=== PATIENT | male | born 1980 | race Caucasian/White ===

== ENCOUNTER 2021-02-27 09:38 | Emergency (ER) | payer BC, SELFPAY ==
[2021-02-27 09:40] VITALS: BP 133/83; PULSE 70; RESP 18; TEMP 36.7; O2SAT 97; BMI 25.7
[2021-02-27 09:50] VITALS: BP 133/83
--- NOTE | 2021-02-27 09:53 | HMH.EDGENADL ---
ED Disposition Clinical Impression: Low back pain Qualifiers: Chronicity: acute Back pain laterality: midline Sciatica presence: without sciatica Qualified Code(s): M54.5 - Low back pain Disposition: Home, Self-Care Condition on Discharge: Good Instructions: DI for Low Back Pain Additional Instructions: Off work until Tuesday. Avoid strenuous activity until Tuesday. Prednisone as prescribed. Loranger as needed for pain. You are being provided with a list of physicians available for follow-up of your condition. Please call a physician on this list to arrange a follow-up appointment as soon as possible. Additional instructions for BACK PAIN: See your physician as soon as possible for further evaluation. Return immediately if back pain becomes intolerable, or if fever, numbness or weakness of your legs, loss of control of your bowels or bladder. Additional instructions for CONTROLLED SUBSTANCES: You have been prescribed a medication that is a controlled substance. Controlled substances include pain medications known as opiates and sedative nerve medications known as benzodiazepines. Tramadol, fioricet, and gabapentin are also controlled substances. Some common opiates include: Codeine (such as Tylenol #3) Hydrocodone (Vicodin, Lortab, Lorcet, Loranger) Oxycodone (Percocet, Percodan, Oxycodone, Oxy IR) Some common benzodiazepines include: Diazepam (Valium) Lorazepam (Ativan) Alprazolam (Xanax) Clonazepam (Klonopin) Oxazepam (Serax) All of these controlled substances are highly addictive and frequently abused. Misuse can and frequently does lead to addiction as well as overdose and . Medication should be stored in a locked cabinet or other secure storage unit. Do not store the medication in a motor vehicle. Short term supplies, 3 days or less, are prescribed because of the highly addictive nature of the medication. Any of the controlled substance medication NOT taken should be disposed of properly and NOT SAVED. The recommended method of disposing of unused medications is: Place the medicines in a sealable plastic bag. If the medicine is a solid, crush it or add water to dissolve it. Add something undesirable (cat litter, coffee grounds, etc.) Dispose of sealed bag in household trash Do not flush or pour unused medicines down a sink or drain. Controlled substances should not be shared, given away or sold. Because of the addictive nature and frequent abuse, these medications are sometimes stolen. These medications should be kept in a safe place where they cannot be stolen. Do not keep them in your car or purse. Lost or stolen prescriptions for controlled substances WILL NOT BE REFILLED in this emergency department, regardless of whether a police report was filed. Prescriptions: Hydrocod/Acet 5/325 mg [Loranger 5/325mg tablet] 1 tab PO Q6HP PRN #10 tab PRN Reason: Pain Transmission Status: Sent to [id number] predniSONE [Prednisone 20mg Tab] 20 mg PO BID #10 tab Transmission Status: Pending to [facility] Referrals: Provider,Referral, MD [Primary Care Provider] - Forms: Work/School Release - Critical Care Critical Care Time: No Attestation: On 02/27/21, the high probability of a clinically significant, sudden or life threatening deterioration of the following system(s) required my full and direct attention, intervention and personal management. The time I documented below is in addition to time spent performing reported procedures but includes the following listed in this critical care notation. Medical Decision Making - Mike Inquiry Pt receiving controlled substance: Yes Mike was queried for this patient: Yes Risks and benefits of using a controlled substance: were discussed with pt by me Vital Signs: 02/27/21 09:40 Temperature 98.0 F Temperature Source Oral Pulse Rate [Radial] 70 Respiratory Rate 18 Blood Pressure [Right Arm] 133/83 Blood Pr
--- NOTE | 2021-02-27 09:59 | XR_ITS ---
PROCEDURE: XR LUMBAR SPINE 2-3V CLINICAL INDICATION: back pain COMPARISON: No exams were available for comparison FINDINGS: No fracture or dislocation of the lumbar spine. No lytic or blastic change. There is normal mineralization. The joint spaces are well-preserved. No significant degenerative/arthritic changes. No erosive changes evident. Other findings:Minimal lumbar curvature convex right. There is slight decrease in height anteriorly of T12 which is age indeterminate. IMPRESSION: Negative lumbar spine. Minimal wedging T12 age indeterminate. Please correlate with clinical parameters Dictated by: Андрей Tatum MD 02/27/2021 10:26 Андрей Tatum MD in [place] 02/27/2021 10:26
[2021-02-27 10:18] VITALS: BP 128/79; PULSE 77; O2SAT 98
[2021-02-27 10:36] VITALS: BP 128/79; PULSE 77; RESP 18; TEMP 36.7; O2SAT 98
== END 2021-02-27 10:39 | disposition home or self-care (01) ==
PROVIDERS: Emergency Provider Emergency Medicine
DX: M54.5 Low back pain (principal)
CPT/HCPCS: 72100; 99281; 99282

== ENCOUNTER → 2021-03-04 15:46 | Outpatient (CLI) | payer BC, SELFPAY ==
[2021-03-04 15:56] LABS: Basophils # 0.2 K/mm3 (0-0.2); Basophils % 1.7 % (0.1-2.0); Eosinophils # 0.2 K/mm3 (0.0-0.4); Hematocrit 42.3 % (42.0-52.0); Hemoglobin 15.1 g/dL (14.1-18.0); Lymphocytes # 4.2 K/mm3 (0.7-4.5); Lymphocytes % 36.3 % (10-50); Mean Corpuscular HGB Conc 35.6 g/dL (31.8-35.4); Mean Corpuscular Volume 89.9 fl (80-94); Mean Platelet Volume 10.1 fl (7.4-10.4); Monocytes # 0.6 K/mm3 (0.1-1.0); Monocytes % 5.2 % (1.7-9.3); Neutrophils # 6.3 K/mm3 (1.8-7.8); Neutrophils % 54.8 % (37.0-80.0); Platelet Count 190 K/mm3 (142-424); Red Blood Count 4.71 M/mm3 (4.60-6.20); Red Cell Distribution Width 14.6 % (11.5-17.5); White Blood Count 11.6 K/mm3 (4.8-10.8)
[2021-03-04 16:51] LABS: Alanine Aminotransferase 40 U/L (12-78); Albumin Level 4.1 g/dl (3.5-5.0); Albumin/Globulin Ratio 1.8 (1.1-1.8); Alkaline Phosphatase 57 U/L (38-126); Anion Gap 10.9 mEq/L (5-15); Aspartate Amino Transferase 25 U/L (17-59); Bilirubin,Total 0.6 mg/dl (0.2-1.3); Blood Urea Nitrogen 17 mg/dl (9-20); Carbon Dioxide 29 mmol/L (22.0-30.0); Chloride 104 mmol/L (98-107); Chol/HDL Ratio 4.9 (1-3.5); Cholesterol 181 mg/dl (140-200); Estimated Glomerular Filt Rate 82 ml/min (>60); GFR (African American) 100 ML/MIN (>60); Globulin 2.3 g/dL (1.3-3.2); Glucose 86 mg/dl (74-100); HDL Cholesterol 37 mg/dl (40-60); Potassium 3.9 mmoL/L (3.5-5.1); Sodium 140 mmol/L (136-145); Total Protein,Serum 6.4 g/dl (6.3-8.2); Triglycerides 187 mg/dl (30-150); VLDL Cholesterol 37 mg/dL (0-40)
[2021-03-04 17:01] LABS: Direct LDL Cholesterol 114.51 mg/dL (100-129)
[2021-03-04 17:07] LABS: T4 (Thyroxine) 8.3 ug/dl (5.53-11.0)
[2021-03-04 17:21] LABS: Thyroid Stimulating Hormone 2.89 uIU/mL (0.465-4.68)
== END ==
PROVIDERS: Visit Provider Nurse Practitioner Family
DX: I10 Essential (primary) hypertension (principal)
CPT/HCPCS: 80053; 80061; 84436; 84443; 85025

== ENCOUNTER → 2021-09-04 19:37 | Outpatient (CLI) | payer BC, SELFPAY | PROVIDERS: Visit Provider Nurse Practitioner Family | DX: U07.1 COVID-19 (principal) | CPT/HCPCS: C9803; U0003; U0005 ==

== ENCOUNTER → 2022-04-06 13:49 | Outpatient (CLI) | payer BC, SELFPAY ==
--- NOTE | 2022-04-06 13:54 | MR_ITS ---
FINAL REPORT CLINICAL HISTORY: Low back pain. LOW BACK PAIN WITH LEFT LEG PAIN. LT CALF NUMBNESS AND TINGLING. WEAKNESS IN LEFT LEG. SYMPTOMS [id number]. NO INJURY OR TRAUMA. FINDINGS: MRI LUMBAR SPINE W/O CONTRAST Multiplanar MR imaging of the lumbar spine was performed without contrast. On the sagittal T2-weighted images, disc degeneration and endplate changes are seen at multiple levels. The vertebral alignment is normal. There is mild chronic wedging of T12. There is no evidence of acute fracture. Note is made of a hemangioma in the T12 vertebral body. The conus has an unremarkable appearance. T11-12: An annular disc bulge is present. L1-2: An annular disc bulge is present. L2-3: An annular disc bulge is present. L3-4: An annular disc bulge is present. L4-5: An annular disc bulge is present. There is a left foraminal disc protrusion with mild right and moderate left neural foraminal narrowing. L5-S1: An annular disc bulge is present. There is a left paracentral annular tear and a broad based disc protrusion with mild left neural foraminal narrowing. IMPRESSION: Multilevel disc degeneration and spondylosis with areas of neural foraminal narrowing as described. Left paracentral annular tear at L5-S1. Disc protrusions at L4-5 and L5-S1. Reviewed, Interpreted and Dictated by Mati Yates III, MD Transcribed by Mildred Pickering Authenticated and [facility]
== END ==
PROVIDERS: PCP Nurse Practitioner Family; Visit Provider Nurse Practitioner Family
DX: M54.50 Low back pain, unspecified (principal)
CPT/HCPCS: 72148; 76376

== ENCOUNTER 2022-04-22 16:30 | Outpatient (RCR) | payer BC, SELFPAY ==
--- NOTE | 2022-04-07 17:09 | HMH.RHREAS ---
Rehab Reassessment Rehab OP Re-assessment Start: 04/01/22 17:41 Freq: Status: Active Protocol: Document 04/01/22 17:00 LUCRETIA (Rec: 04/07/22 17:08 LUCRETIA [id number]) Electronically Signed By Shailesh Hagen, PT 04/01/22 17:00 Rehab Re-assessment Subjective Subjective Patient reports 60% improvement since start of care. Objective Objective Notes AROM: WNL MMT: WNL Pain: 5/10 today; 7/10 at worst over past week Neuro: patient reports intermittent pain/NT to L 3/4 dermatomes no past knee. Assessment Progress Assessment Progressing as Expected Assessment Notes Objective improvements as noted above. Persitent intermittent exacerbation of radicular symptoms. Symptoms have become less frequent and intense with introduction of extension protocol. Patient would benefit from continuing with skilled PT services in order to address functional limitations with all sitting, bending and lifting activities . Patient goals met STG 2, LTG 2, 3 Goals Not Met All others Revised Goals NA Plan Plan Continue with current POC. Frequency of Therapy 2x/week Duration of therapy 4 weeks Time and Billing Re-Eval Time 15 Re-Eval Billing Units 1 PHYSICIAN CERTIFICATION: I certify the specified therapy services for Isma Purcell are required, authorized, and reviewed every 30 days.
== END 2022-04-22 16:35 | disposition home or self-care (01) ==
LOC: PT 16:30
PROVIDERS: Visit Provider Nurse Practitioner Family
DX: M54.50 Low back pain, unspecified (principal)
CPT/HCPCS: 97010; 97012; 97014; 97110; 97163; 97164; G0283

== ENCOUNTER → 2023-07-07 23:00 | Outpatient (CLI) | payer BC, SELFPAY ==
[2023-07-07 21:56] LABS: Chol/HDL Ratio 6.1 (1-3.5); Cholesterol 189 mg/dl (140-200); HDL Cholesterol 31 mg/dl (40-60); Triglycerides 109 mg/dl (30-150); VLDL Cholesterol 22 mg/dL (0-40)
[2023-07-07 22:08] LABS: Direct LDL Cholesterol 126.62 mg/dL (100-129)
== END ==
PROVIDERS: PCP Nurse Practitioner Family; Visit Provider Internal Medicine
DX: M54.42 Lumbago with sciatica, left side; Z79.899 Other long term (current) drug therapy
CPT/HCPCS: 80061

== ENCOUNTER 2023-10-17 19:34 | Outpatient (CLI) | payer OTHER, SELFPAY ==
[2023-10-17 18:37] LABS: Coronavirus 19, PCR Not Detected (NotDetected); Influenza A, PCR Not Detected (NotDetected); Influenza B, PCR Not Detected (NotDetected)
[2023-10-17 19:13] LABS: Basophils % 0.4 % (0.1-2.0); Eosinophils # 0.3 K/mm3 (0.0-0.4); Eosinophils % 2.2 % (0.1-12.0); Hematocrit 41.3 % (42.0-52.0); Hemoglobin 14.8 g/dL (14.1-18.0); Lymphocytes # 2.8 K/mm3 (0.7-4.5); Lymphocytes % 25.3 % (10-50); Mean Corpuscular HGB Conc 35.9 g/dL (31.8-35.4); Mean Corpuscular Hemoglobin 32.6 pg (27.0-31.2); Mean Corpuscular Volume 90.9 fl (80-94); Mean Platelet Volume 10.6 fl (7.4-10.4); Monocytes # 0.7 K/mm3 (0.1-1.0); Monocytes % 6.3 % (1.7-9.3); Neutrophils # 7.4 K/mm3 (1.8-7.8); Neutrophils % 65.8 % (37.0-80.0); Platelet Count 246 K/mm3 (142-424); Red Blood Count 4.55 M/mm3 (4.60-6.20); Red Cell Distribution Width 14.1 % (11.5-17.5); White Blood Count 11.2 K/mm3 (4.8-10.8)
[2023-10-17 20:33] LABS: Chloride 111 mmol/L (98-107); Sodium 140 mmol/L (136-145)
[2023-10-17 20:34] LABS: Potassium 4.2 mmoL/L (3.5-5.1)
[2023-10-17 20:36] LABS: Alanine Aminotransferase 24 U/L (12-78); Albumin Level 4.3 g/dl (3.5-5.0); Albumin/Globulin Ratio 1.5 (1.1-1.8); Alkaline Phosphatase 93 U/L (38-126); Anion Gap 9.2 mEq/L (5-15); Aspartate Amino Transferase 28 U/L (17-59); Bilirubin,Total 0.5 mg/dl (0.2-1.3); Blood Urea Nitrogen 15 mg/dl (9-20); Carbon Dioxide 24 mmol/L (22.0-30.0); Estimated Glomerular Filt Rate 106 ml/min (>60); GFR (African American) 128 ML/MIN (>60); Globulin 2.9 g/dL (1.3-3.2); Total Protein,Serum 7.2 g/dl (6.3-8.2)
[2023-10-17 20:37] LABS: Calcium 9.3 mg/dl (8.4-10.2); Glucose 80 mg/dl (74-100)
[2023-10-17 21:07] LABS: Thyroid Stimulating Hormone 3.25 uIU/mL (0.465-4.68)
[2023-10-17 22:43] LABS: Prostate Specific Ag Screen 1.8 ng/ml (0.0-4.0)
== END 2023-10-17 23:59 ==
LOC: LAB.DROPOF 19:35
PROVIDERS: PCP Family Medicine; Visit Provider Family Medicine
DX: R06.02 Shortness of breath (principal); R09.82 Postnasal drip; R05.8 Other specified cough; R09.89 Other specified symptoms and signs involving the circulatory and respiratory systems; Z12.5 Encounter for screening for malignant neoplasm of prostate
CPT/HCPCS: 80053; 84443; 85025; 87636; G0103

== ENCOUNTER 2023-10-18 11:00 | Outpatient (CLI) | payer OTHER, SELFPAY ==
[2023-10-18 12:37] LABS: Folate 4.63 ng/mL; Vitamin B12 > 1000 pg/mL (239-931)
== END 2023-10-18 23:59 ==
LOC: LAB.DROPOF 10-20 11:01
PROVIDERS: PCP Family Medicine; Visit Provider Family Medicine
DX: D53.8 Other specified nutritional anemias (principal); R79.89 Other specified abnormal findings of blood chemistry
CPT/HCPCS: 82607; 82746

== ENCOUNTER 2023-12-28 18:00 | Outpatient (CLI) | payer OTHER, SELFPAY ==
[2023-12-28 19:03] LABS: Basophils # 0.1 K/mm3 (0-0.2); Basophils % 1.3 % (0.1-2.0); Eosinophils # 0.2 K/mm3 (0.0-0.4); Eosinophils % 2.5 % (0.1-12.0); Hematocrit 46.5 % (42.0-52.0); Hemoglobin 15.4 g/dL (14.1-18.0); Lymphocytes % 23.2 % (10-50); Mean Corpuscular HGB Conc 33.2 g/dL (31.8-35.4); Mean Corpuscular Volume 96.5 fl (80-94); Mean Platelet Volume 11.7 fl (7.4-10.4); Monocytes # 0.5 K/mm3 (0.1-1.0); Monocytes % 5.9 % (1.7-9.3); Neutrophils # 5.7 K/mm3 (1.8-7.8); Neutrophils % 67.1 % (37.0-80.0); Platelet Count 199 K/mm3 (142-424); Red Blood Count 4.82 M/mm3 (4.60-6.20); Red Cell Distribution Width 14.8 % (11.5-17.5); White Blood Count 8.6 K/mm3 (4.8-10.8)
[2023-12-29 09:06] LABS: Prostate Specific Ag, Diagnost 1.97 ng/ml (0.0-4.0)
== END 2023-12-28 23:59 | disposition home or self-care (01) ==
LOC: LAB.DROPOF 12-29 08:47
PROVIDERS: Visit Provider Family Medicine
DX: N41.0 Acute prostatitis (principal); Z79.899 Other long term (current) drug therapy
CPT/HCPCS: 84153; 85025

== ENCOUNTER 2024-03-28 13:22 | Emergency (ER) | payer SELFPAY ==
[2024-03-28 13:24] VITALS: BP 126/78; PULSE 69; RESP 18; TEMP 36.5; O2SAT 95; BMI 25.0
[2024-03-28 14:00] VITALS: BP 115/75; PULSE 56; O2SAT 99
--- NOTE | 2024-03-28 14:04 | ED_ITS ---
<Statement entered by Rigo Cottrell MD - 03/28/24 16:08> I was consulted by the JOSE LUIS, and we discussed the complexity of problems being addressed. I approved the treatment and management plan for this patient's care in the emergency department, thus performing a substantial portion of the medical decision making. Rigo Cottrell MD Discharge Plan Disposition Patient Disposition: Home, Self-Care Condition: Good Prescriptions Prescriptions: New cephalexin 500 mg capsule 500 mg PO Q12H 5 Days Qty: 10 0RF No Action gabapentin 600 mg tablet See Rx Instructions .ROUTE .COMPLEX Qty: 90 0RF Dose Instruction: TAKE 1 TABLET BY MOUTH THREE TIMES DAILY Rx Instructions: TAKE 1 TABLET BY MOUTH THREE TIMES DAILY tramadol 50 mg tablet 50 mg PO Q4H PRN (Reason: severe lower back pain) 30 Days Qty: 90 1RF tamsulosin [Flomax] 0.4 mg capsule 0.4 mg PO DAILY Qty: 30 2RF Referrals Follow up/Referrals: Provider,Referral, [Primary Care Provider] - See instructions Activity Restrictions/Add. Instructions Additional Instructions/Restrictions: Please keep your wound clean dry and covered but with a nonocclusive dressing. Return for any redness drainage, increasing pain. Sutures need to come out in 5 days she can return to your PCP [facility] or ER for suture removal. You may wash with soap and water as normal. Clinical Impressions Clinical Impression: Laceration Instructions Patient Instructions: DI for Laceration Repair Print Language Print Language: Uzbek Discharge ED Provider: Rigo Cottrell General Adult HPI General Chief complaint: Wound/Laceration Stated complaint: WC- Laceration R hand Time Seen by Provider: 03/28/24 14:03 Mode of Arrival: Family Vehicle Source of Information: Patient Limitations: No Limitations Description of Symptoms (Recalled from ER Triage Doc. by RN): Pt presents to ER after sustaining an approx 1 laceration to posterior of R hand. This occured at work, [employer], @ [employer] today. Reports he is unsure what cut his hand as he was pulling a harness by the [employer] . He is not UTD with his tetanus. No medications NYLON WINDER. Bleeding is controlled at this time. No numbness to pt's hand or fingers. He ia able to extend and flex his fingers without pain or difficulty. [employer] and pulses are WNL. Pt is not on a ny blood thinners. History of Present Illness HPI narrative: Patient presents for evaluation of laceration. 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 He has a 1 and half centimeter laceration on the dorsum of his right hand just proximal to the fourth MCP joint. Patient has no loss of range of motion motor or sensory. Related Data Previous Rx's ?Medication ?Instructions ?Recorded gabapentin 600 mg tablet See Rx Instructions .Route 12/28/23 .COMPLEX #90 tabs tamsulosin 0.4 mg capsule (Flomax) 0.4 mg PO DAILY #30 caps 12/28/23 tramadol 50 mg tablet 50 mg PO Q4H PRN severe lower back 12/28/23 pain 30 days #90 tabs cephalexin 500 mg capsule 500 mg PO Q12H 5 days #10 caps 03/28/24 Allergies Allergy/AdvReac Type Severity Reaction Status Date / Time No Known Allergies Allergy Verified 12/28/23 10:38 [facility] Disclaimer: The information contained in this section may have been updated after the patient was seen, as this information can be updated by other users. Medical History (Updated 03/28/24 @ 14:29 by MCKENNA James) Acute prostatitis Social History Smoking Status: Current every day smoker alcohol intake: never substance use type: denies use current occupational status: employed Travel in the last 8 weeks: None ROS Obtained: Yes Systems reviewed as appropriate & no additional complaints except as documented Physical Exam General General appearance: alert and in no apparent distress Respiratory Respiratory exam: Present normal lung sounds bilaterally Cardiovascular Cardiovascular exam: Present regular rate and normal rhythm Expanded Upper Extremity Exam Right: Hand L/R back image: 2 1. 1-1/2 cm laceration Neurological Exam Neurological exam: Present alert and oriented X3 Medical Decision Making Mike Inquiry Pt receiving controlled substance: No Vital Signs: 03/28/24 13:24 03/28/24 14:00 Temperature 97.7 F Temperature Source Oral Pulse Rate 56 L Pulse Rate [Right] 69 Respiratory Rate 18 Blood Pressure 115/75 Blood Pressure [Left Arm] 126/78 Blood Pressure Mean [Left Arm] 94 Blood Pressure Source [Left Arm] Automatic Cuff 02 Sat by Pulse Oximetry 95 99 Oxygen Delivery Method Room Air Orders (Tests/Meds): ED MEDICATIONS Discontinued Medications Generic Name Dose Route Start Last Admin Trade Name Fiona PRN Reason Stop Dose Admin Cephalexin HCl 500 mg 03/28/24 14:26 Cephalexin 500mg Capsule PO 03/28/24 14:27 ONCE ONE Lidocaine HCl 5 ml 03/28/24 14:06 Lidocaine 1% 10ml Mdv SQ 03/28/24 14:07 ONCE ONE Tetanus/Reduced Diphtheria/Acell Pertussis 0.5 ml 03/28/24 14:06 Tet/Diphth/Pert-Adult 0.5ml Syringe IM 03/28/24 14:07 .ONCE ONE Medical Decision Narrative: In summary patient is a 44-year-old male who presents to the emergency department for evaluation of laceration. Patient is hemodynamically stable upon arrival, afebrile. Physical exam is remarkable for a 1 cm laceration to the dorsum of his right hand at the fourth MCP joint. Patient is neurovascularly intact with no loss of motor or sensory or range of motion. Differential diagnosis includes superficial laceration versus complicated versus tendon or joint involvement.. Initial workup was considered however physical exam does not suggest loss of function motor or sensory thus deferred until repair. Initial interventions include Keflex Tdap. Wound was irrigated and sterile prep and drape in the usual fashion. After subcu anesthesia obtained wound explored. It is very superficial and does not involve deeper structures including tendon or joint intrusion. Wound then subsequently repaired primarily with four 4-0 nylon interrupted sutures. Patient is appropriate for discharge with no work restrictions and prescription for Keflex with first dose given here Procedures Laceration Laceration 1: Site: hand Side (If applicable): right Size (cm): 1.5 Description: linear Depth: simple, single layer Local Anesthetic: lidocaine 1% Amount of anesthesia used (mL): 5 Pre-repair: wound explored, irrigated extensively and deep structures intact Skin layer closed with: nylon Size (cm): 4-0 Number of sutures: 4 Technique: simple, interrupted Critical Care Critical Care Time Critical Care Time: No
[2024-03-28] MEDS: TET/DIPHTH/PERT-ADULT 0.5ML SYRINGE 0.5 ML IM (14:10)
[2024-03-28] MEDS: LIDOCAINE 1% 10ML MDV 5 ML SQ (14:10)
[2024-03-28] MEDS: cephALEXin 500MG CAPSULE 500 MG PO (14:30)
[2024-03-28 14:45] VITALS: BP 110/60; PULSE 70; RESP 18; TEMP 36.5; O2SAT 98
== END 2024-03-28 15:11 | disposition home or self-care (01) ==
PROVIDERS: Emergency Provider Emergency Medicine
DX: S61.411A Laceration without foreign body of right hand, initial encounter (principal); W26.8XXA Contact with other sharp object(s), not elsewhere classified, initial encounter; Z23 Encounter for immunization
CPT/HCPCS: 12001; 90471; 90715; 99283